=== PATIENT | male | born 1985 | race Caucasian/White ===

== ENCOUNTER 2024-09-19 10:59 | Emergency (ER) | payer OTHER, SELFPAY ==
[2024-09-19 11:05] VITALS: BP 152/95; PULSE 77; RESP 18; TEMP 36.5; O2SAT 98; BMI 25.7
--- NOTE | 2024-09-19 11:20 | CRLHL7_ITS ---
For Patients: As a result of the Century Cures Act, medical imaging exams and procedure reports are released immediately into your electronic medical record. You may view this report before your referring provider. If you have questions, please contact your health care provider. INDICATION: Chest pain TECHNIQUE: Two view chest. FINDINGS: The lungs are clear. The heart, mediastinum and pulmonary vessels are of normal size. There is no evidence of pleural disease. IMPRESSION: Negative chest. Dictated by Radha Geiger MD @ 09/19/2024 12:06:53 PM (Electronically Signed)
--- NOTE | 2024-09-19 11:20 | ED.GENADULT ---
HPI - General Adult General Chief complaint: Fall/Minor Trauma Stated complaint: chest pain, migraine Time Seen by Provider: 09/19/24 11:00 History of Present Illness HPI narrative: This 38-year-old male comes in reporting chest pain from an injury that occurred about a week ago. He states that he got caught between a truss and a implement and has now had worsening pain in his sternum area. He does not report any shortness of breath. He states that he is also getting headaches more frequently. He does have headaches on occasion but since this injury his headaches have been more frequent. He does not have any neurologic deficits. He arrives here with normal vital signs. Related Data Previous Rx's ?Medication ?Instructions ?Recorded omeprazole 40 mg capsule,delayed 40 mg PO QDAY #90 caps 08/09/24 release hydrocodone 5 mg-acetaminophen 325 1 tab PO Q4-6H PRN pain #15 tabs 09/19/24 mg tablet ketorolac 10 mg tablet 10 mg PO TID 5 days #15 tabs 09/19/24 ondansetron HCl 4 mg tablet 4 mg PO Q6H #15 tabs 09/19/24 Allergies Allergy/AdvReac Type Severity Reaction Status Date / Time No Known Drug Allergies Allergy Verified 09/19/24 11:04 Review of Systems Status of ROS: Reports: 10 or more systems reviewed and unremarkable except as noted in History and below Narrative: Constitutional: No fevers, no weight gain or loss. Eyes: No discharge. No vision changes. HENT: No congestion, no sore throat, no ear pain. Cardiovascular: No palpitations. Respiratory: No shortness of breath, no wheezes, no cough. Gastrointestinal: No abdominal pain, no vomiting, no diarrhea. Genitourinary: No dysuria, no hematuria. Musculoskeletal: Normal range of motion. Skin: No rashes, no pruritis. Neurological: No dizziness, weakness, sensory change, speech change. Endo/Heme/Allergies: No bruising or bleeding. No polydipsia. Pysch: no suicidality, no anxiety, no insomnia. All other systems reviewed and are negative. [facility] Social History (Updated 08/09/24 @ 13:51 by Maya Garcia~[facility], [facility]) What is your current living situation?: I presently have a place to live Problems where you live: no known problems In the past 12 months, utilities in danger of being shut off: no In past 12 months, lack of transportation kept you from medical appts, meetings, work, or getting things needed for daily living: no In the past 12 mos, have been you worried that your food would run out before you had money to buy more?: never true In the past 12 mos, the food you bought just didn't last and you didn't have money to buy more?: never true Smoking Status: Current every day smoker What tobacco products do you use: cigarettes Do you use any of these nicotine containing products: None How often do you have a drink containing alcohol: never How often do you have six or more drinks on one occasion: Never AUDIT-C Alcohol total score: 0 Non-prescribed substance use: denies use How often does anyone, including family, friends and others, physically hurt you: never How often does anyone, including family, friends and others, insult or talk down to you: never How often does anyone, including family, friends and others, threaten you with harm: never How often does anyone, including family, friends and others, scream or curse at you: never Exam Narrative: Exam Narrative: Constitutional: Well-developed, well-nourished, no acute distress. HEENT: Normocephalic, atraumatic. Neck: Normal range of motion. Nontender. Supple. Heart: Regular. No murmurs. Normal rate. Intact distal pulses. Lungs: Clear to auscultation. No wheezes, rhonchi, or rales. Chest: No external sign of injury. Diffuse pain in the sternum area that is distinctly reproducible with palpating in this area and with taking deep breaths. Abdomen: Normal bowel sounds. Nontender. No rebound tenderness. Genitalia: Deferred. Back: No midline tenderness. Normal range of motion. Extremities: Normal range of motion. No injury. Skin: Intact. No rash. Warm. No erythema or pallor. Neurologic: No altered sensation. No weakness. Alert and oriented. Psychiatric: No suicidality. No anxiety or depression. No insomnia. Nursing notes and vitals signs are reviewed. Const: Vital Signs, click to edit/add: Vital Signs - 24 hr 09/19/24 11:05 Temperature 97.7 F Pulse Rate [Pulse Oximeter] 77 Respiratory Rate 18 Blood Pressure [Ri ght Upper Arm] 152/95 H Pulse Oximetry 98 Oxygen Delivery Me thod Room Air Course Vital Signs Vital signs: Initial Vital Signs Temperature 97.7 F 09/19/24 11:05 Temperature Source Temporal Artery Scan 09/19/24 11:05 Pulse Rate 77 09/19/24 11:05 Respiratory Rate 18 09/19/24 11:05 Blood Pressure 152/95 H 09/19/24 11:05 Blood Pressure Mean 114 H 09/19/24 11:05 Pulse Oximetry 98 09/19/24 11:05 Oxygen Delivery Method Room Air 09/19/24 11:05 Vital Signs Temperature 97.7 F 09/19/24 11:05 Pulse Rate 77 09/19/24 11:05 Respiratory Rate 18 09/19/24 11:05 Blood Pressure 152/95 H 09/19/24 11:05 Pulse Oximetry 98 09/19/24 11:05 Oxygen Delivery Method Room Air 09/19/24 11:05 Temperature 97.7 F 09/19/24 11:05 Pulse Rate 77 09/19/24 11:05 Respiratory Rate 18 09/19/24 11:05 Blood Pressure 152/95 H 09/19/24 11:05 Pulse Oximetry 98 09/19/24 11:05 Oxygen Delivery Method Room Air 09/19/24 11:05 Medical Decision Making MDM Narrative Medical decision making narrative: This patient comes in with a chest wall injury as described above. Chest x-ray shows no acute findings. He also has been having increased headaches recently related to this. His exam and vital signs are all reassuring. He is okay to be discharged home and did receive prescriptions for Toradol, [place], and Zofran. Imaging Data Chest x-ray: Radiologist's impression: Negative chest. Discharge Plan Discharge Clinical Impression: Acute chest wall pain, Migraine Patient Disposition: Home, Self-Care Condition: Stable Additional Instructions: Take medication as needed and directed. Increase activity as tolerated. Follow up with MD return if worsening. Prescriptions: New hydrocodone-acetaminophen 5-325 mg tablet 1 tab PO Q4-6H PRN (Reason: pain) Qty: 15 0RF ondansetron HCl 4 mg tablet 4 mg PO Q6H Qty: 15 0RF ketorolac 10 mg tablet 10 mg PO TID 5 Days Qty: 15 0RF No Action omeprazole 40 mg capsule,delayed release(DR/EC) 40 mg PO QDAY Qty: 90 3RF Follow Up/Referrals: Jc Durant MD [Primary Care Provider, Family Practice] Stand Alone Forms: [employer] Info Instructions
== END 2024-09-19 12:22 | disposition home or self-care (01) ==
PROVIDERS: Emergency Provider Emergency Medicine Emergency Medical Services; PCP Family Medicine
DX: R07.9 Chest pain, unspecified (principal); G43.909 Migraine, unspecified, not intractable, without status migrainosus
CPT/HCPCS: 71046; 99284